=== PATIENT | female | born 2000 | race Caucasian/White ===

== ENCOUNTER 2018-12-05 16:59 | Emergency (ER) | payer BC ==
--- NOTE | 2018-12-05 18:28 | EDPHY ---
General Time Seen by Provider: 12/05/18 17:45 Narrative: CLINICAL IMPRESSION: Chronic low back pain ASSESSMENT/PLAN: 18-year-old female presents to the emergency department with intermittent low back pain for 1 year. Patient reports today the pain was sharper which brought her to the ER. Pain is reproducible to palpation along the right SI joint and paraspinal muscles of the lumbar spine right > than left, she has no reproducible flank pain, and pain is worse with forward bending and rotation of her trunk. Patient ambulates with a steady gait, has intact patellar DTRs, has no reported bowel or bladder incontinence or saddle anesthesia, no reports of urinary retention. She has no complaints of UTI symptoms and denies . No prior back injury or surgery. No significant past medical history including cancers. No reported trauma or fall. I do not feel this patient requires an emergent x-ray tonight. There are no clinical concerns to suggest cauda equina, epidural abscess, meningitis, or acute neurovascular injury. I suspect patient is struggling from an intermittent musculoskeletal strain and I encouraged her to follow up with Orthopedics, physical therapy, consider gentle massage and primary care evaluation. Urine shows no sign of hematuria or UTI. Warning signs for return to emergency department sooner were outlined and discharge. DIFFERENTIAL DX: Differential diagnosis includes but not limited to muscular pain, herniated disc , spine fracture, cauda equina, epidural abscess, infectious causes, intra- abdominal causes, pyelonephritis and urinary tract infection. ED PROCEDURES: See lab and/or imaging results below ED COURSE: 6:20 p.m.: Patient evaluated. Urine study show no sign of UTI. Pain is reproducible to the right SI joint. No history of trauma. No clinical indication for acute fracture. CHIEF COMPLAINT: Back pain intermittently x1 year HPI: 18-year-old female presents to the emergency department with atraumatic low back pain that has been present intermittently for the last year. She has never seen anyone for this. She came to the ED tonight because her pain was slightly sharper in nature. Pain is worsened by forward bending, rotation, and certain movements. She can reproduce pain by pushing on the back. No associated flank pain, fever, chills, dysuria, urgency. No saddle anesthesia. No bowel or bladder incontinence or urinary retention. No prior back injury or surgery. No recent epidural injection or procedure to the spine. She does not abuse IV drugs. No past medical history including cancer. No UTI symptoms and she denies . PAST MEDICAL HISTORY: Chronic low back pain See nurse/triage notes for additional history if applicable Pertinent Past Surgical History: None reported Family History: Noncontributory Social History: Otherwise healthy, student REVIEW OF SYSTEMS: All other systems negative Constitutional: No fever, no chills, appetite change. Cardiovascular: No chest pain, no palpitations. Respiratory: No cough, no shortness of breath. Gastrointestinal: No abdominal pain, no vomiting, diarrhea. Genitourinary: No hematuria, dysuria, flank pain, pelvic pain Musculoskeletal: Positive for back pain, joint swelling, joint pain, myalgias. Skin: No rashes, color change. PHYSICAL EXAM: General Appearance: Alert, oriented, appropriate, cooperative, NAD, well hydrated, non-toxic appearing, VSS, no hypoxia. Respiratory: There are no retractions, lungs are clear to auscultation. Cardiac: Regular rate and rhythm, no murmurs or gallops. Gastrointestinal: Abdomen is soft, nontender, bowel sounds normal, no masses/ hernia, no rigidity, guarding or focal peritoneal findings. Neurological: Alert and oriented x 3, CN 2-12 grossly intact, normal gait no ataxia, DTR's intact, normal sensation and strength Skin: Warm, dry, no rashes, no nodules on palpation. Musculoskeletal: Extremities are symmetrical, full range of motion, no tenderness, deformity, swelling, or erythema. Reproducible back pain along the right SI joint radiating to the paraspinal muscles of the right lumbar spine. No midline back pain. Negative straight leg raise. MEDICAL DECISION MAKING: Patient was seen independently. Secondary supervising physician at time of evaluation was Dr. Barrett. Diagnosis: Right SI pain, low back pain. New, requires workup Summary: See Assessment and Plan for summary of ED visit Patient Progress: Stable. - History Smoking Status: Never smoked - Objective Vital Signs: Initial Vital Signs Temperature (C) 36.9 C 12/05/18 17:07 Heart Rate 75 12/05/18 17:07 Respiratory Rate 16 12/05/18 17:07 Blood Pressure 123/64 H 12/05/18 17:07 O2 Sat (%) 97 12/05/18 17:07 O2 Delivery Mode Room Air Allergies/Adverse Reactions: clindamycin Allergy (Verified 12/05/18 17:06) ibuprofen Allergy (Verified 12/05/18 17:06) Home Medications: Medication Instructions Recorded Loestrin 21 1-20 Tablet 12/05/18 Sertraline HCl 12/05/18 Laboratory Results: 12/05/18 17:16 Urine Color YELLOW Urine Appearance HAZY Urine pH 8.0 H (5.0-7.5) Ur Specific [place] 1.017 (1.002-1.030) Urine Protein NEGATIVE (NEGATIVE) Urine Ketones NEGATIVE (NEGATIVE) Urine Blood NEGATIVE (NEGATIVE) Urine Nitrate NEGATIVE (NEGATIVE) Urine Bilirubin NEGATIVE (NEGATIVE) Urine Urobilinogen NEGATIVE EU EU (0.2-1.0) Ur Leukocyte Esterase TRACE H (NEGATIVE) Urine RBC 1-3 /hpf /hpf (0-3) Urine WBC 1-3 /hpf /hpf (0-3) Ur Epithelial Cells TRACE /lpf /lpf (NONE-1+) Urine Bacteria TRACE /hpf H /hpf (NONE SEEN) Urine Mucus TRACE /lpf /lpf (NONE-1+) Urine Glucose NEGATIVE (NEGATIVE) Departure - Departure Disposition: Home, Routine, Self-Care Clinical Impression: Low back pain Qualifiers: Chronicity: chronic Back pain laterality: right Sciatica presence: without sciatica Qualified Code(s): M54.5 - Low back pain Condition: Good Instructions: Acute Low Back Pain (ED) Additional Instructions: DISCHARGE INSTRUCTIONS FROM YOUR DOCTOR Thank you for visiting our emergency department today. Please keep in mind that discharge from the emergency department does not mean that there is nothing wrong - it simply means that we have not identified an emergency condition that requires further evaluation or treatment in the hospital. You should always plan to follow up with primary care for re-evaluation of your condition in the next 2-3 days. If you have been referred to a specialist, please call as soon as possible (today or tomorrow) to schedule your follow up appointment at the appropriate time. URINE DOES NOT SHOW SIGN OF INFECTION. YOU HAVE NO BLOOD IN URINE. BACK PAIN IS REPRODUCIBLE TO THE RIGHT SI JOINT AND IS LIKELY MUSCULOSKELETAL IN ORIGIN. GIVEN THE LACK OF TRAUMA, X-RAYS WERE NOT ORDERED TONIGHT. WE RECOMMEND FOLLOW- UP WITH ORTHOPEDICS, PRIMARY CARE, CONSIDER PHYSICAL THERAPY, GENTLE MASSAGE. GIVEN THAT YOU CANNOT TAKE NSAIDS, YOU MAY WANT TO CONSIDER [id number] LIDODERM PATCHES. RETURN TO THE EMERGENCY DEPARTMENT FOR SEVERE PAIN, URINARY RETENTION, BOWEL OR BLADDER INCONTINENCE, NUMBNESS TO HER GROIN, NUMBNESS TO HER LEGS, INABILITY TO WALK, OR ANY OTHER CONCERN. People present with illnesses and injuries in different ways, and it is always possible that we have missed something. You may always return for re-evaluation if symptoms worsen or if they are not improving or if you develop new/different symptoms. Again, thank you for choosing our emergency department. We hope that you feel better. Referrals: NONE *PRIMARY CARE P,. [Primary Care Provider] - As per Instructions Estrellita Cervantes MD [Medical Doctor] - As per Instructions [facility] [Cl[facility]] - As per Instructions
[2018-12-05 18:57] VITALS: BP 106/56
== END 2018-12-05 18:56 | disposition home or self-care (01) ==
DX: M54.5 Low back pain (principal)

== ENCOUNTER 2019-02-23 06:12 | Emergency (ER) | payer BC ==
[2019-02-23] MEDS ORDERED: ACETAMINOPHEN 325 MG TAB PO ONE (07:04)
--- NOTE | 2019-02-23 07:11 | EDPHY ---
H & P Stated Complaint: L upper thigh pain x1 wk, worsening last night, concerned for blood clot Time Seen by Provider: 02/23/19 06:55 HPI/ROS: CHIEF COMPLAINT: Left thigh pain HISTORY OF PRESENT ILLNESS: 18-year-old female presents with left thigh pain. Onset of atraumatic left thigh pain 1 week ago. The pain has gradually increased and is now moderate. The pain increases with movement and is better with rest. Unable to sleep last night because of pain. No associated symptoms. On control pills, no history of VTE. REVIEW OF SYSTEMS: complete 10 point ROS reviewed and is negative except for the noted elements in the HPI - Personal History LMP (Females 10-55): 15-21 Days Ago Current Tetanus Diphtheria and Acellular Pertussis (TDAP): Yes - Medical/Surgical History Hx Asthma: No Hx Chronic Respiratory Disease: No Hx Diabetes: No Hx Cardiac Disease: No Hx Renal Disease: No Hx Cirrhosis: No Hx Alcoholism: No Hx HIV/AIDS: No Hx Splenectomy or Spleen Trauma: No Other PMH: wisdom teeth - Social History Smoking Status: Never smoked - Physical Exam Exam: General Appearance: Alert, pleasant Eyes: Pupils equal and round, no conjunctival pallor ENT, Mouth: Mucous membranes moist Neck: Normal inspection Respiratory: Lungs are clear to auscultation Cardiovascular: Regular rate and rhythm Gastrointestinal: Abdomen is soft and nontender Neurological: A&O, motor 5/5 of the lower extremities, sensory grossly intact Skin: Warm and dry, no erythema or rash Extremities: Normal inspection, Left anterior thigh tenderness, no swelling, no calf tenderness or swelling Vascular: 2+ pedal pulses Psychiatric: Mood and affect normal Constitutional: Initial Vital Signs Temperature (C) 36.8 C 02/23/19 06:13 Heart Rate 90 02/23/19 06:13 Respiratory Rate 17 02/23/19 06:13 Blood Pressure 126/80 H 02/23/19 06:13 O2 Sat (%) 97 02/23/19 06:13 O2 Delivery Mode Room Air Allergies/Adverse Reactions: clindamycin Allergy (Verified 02/23/19 06:13) ibuprofen Allergy (Verified 02/23/19 06:13) Home Medications: Medication Instructions Recorded Loestrin 21 1-20 Tablet 12/05/18 Sertraline HCl 12/05/18 Medical Decision Making - Diagnostics Imaging Results: Imaging Impressions Extremity Venous Study 02/23/19 06:56 Impression: No evidence of deep vein thrombosis. Findings discussed with AMITA SANTAMARIA 02/23/2019 at 7:53. Femur X-Ray 02/23/19 07:05 Impression: 1. Subtle endosteal scalloping mid femoral diaphyseal shaft may indicate intramedullary lesion as source for pain. Recommend MRI of the thigh with and without IV contrast to optimally evaluate. 2. No fracture. Comment: The case was discussed with Dr. Amita Santamaria shortly after study completion on February 23, 2019. I have reviewed the case with Dr. Rubio Rojas who agrees with the findings and recommendations. Imaging: Discussed imaging studies w/ scallop cutter Radiologist, I viewed and interpreted images myself ED Course/Re-evaluation: This patient presents with atraumatic left thigh pain. Left lower extremity ultrasound read by the radiologist reveals no evidence of DVT. X-ray initially read by me as negative. After the patient left the emergency department, I received a follow-up phone call from Dr. Liao. There is a possible subtle lucency along the mid femur. Dr. Liao suggests an MRI with and without contrast to further evaluate this finding. I agree with this, as this is the area of her pain. I called the patient and left a phone message for her at 9: 30 a.m. and at noon. ED charge nurse informed, Arnoldo called pt's parents. Differential Diagnosis: Differential diagnosis includes though it is not limited to fracture, dislocation, tendon disruption, neurovascular compromise. - Data Points Medications Given: Discontinued Medications Acetaminophen (Tylenol) 650 mg PO EDNOW ONE Stop: 02/23/19 07:05 Last Admin: 02/23/19 07:18 Dose: 325 mg Departure - Departure Disposition: Home, Routine, Self-Care Clinical Impression: Leg pain, left Condition: Good Instructions: Leg Pain (ED) Additional Instructions: Your left leg ultrasound and left femur Xrays are normal. You do not have a blood clot. Tylenol 650 mg every 4 hr as needed for pain. Ice for 20 min every 1-2 hours as needed for pain. Referrals: [facility],. [Clinic] - As per Instructions Yan Magallanes MD [Medical Doctor] - 5-7 days, if not improved Stand Alone Forms: Statement of Treatment
[2019-02-23 08:13] VITALS: BP 102/67
[2019-02-23] MEDS ORDERED: GADOBUTROL 10 ML VIAL IVP ONE (14:01)
== END 2019-02-23 08:13 | disposition home or self-care (01) ==
DX: M79.652 Pain in left thigh (principal)
CPT/HCPCS: A9585

== ENCOUNTER 2019-02-23 12:43 | Emergency (ER) | payer BC ==
[2019-02-23 12:59] VITALS: BP 118/91
[2019-02-23 13:44] LABS: PLATELET COUNT 292 10^3/uL (150-400)
--- NOTE | 2019-02-23 15:00 | EDPHY ---
H & P Stated Complaint: L Thigh Pain - Personal History LMP (Females 10-55): Over 28 Days Ago Current Tetanus Diphtheria and Acellular Pertussis (TDAP): Yes - Medical/Surgical History Hx Asthma: No Hx Chronic Respiratory Disease: No Hx Diabetes: No Hx Cardiac Disease: No Hx Renal Disease: No Hx Cirrhosis: No Hx Alcoholism: No Hx HIV/AIDS: No Hx Splenectomy or Spleen Trauma: No Other PMH: wisdom teeth - Social History Smoking Status: Never smoked Alcohol Use: Sober Drug Use: None Time Seen by Provider: 02/23/19 12:59 HPI/ROS: CHIEF COMPLAINT: Left thigh pain HISTORY OF PRESENT ILLNESS: 18-year-old female presents with left thigh pain and abnormal fever x-ray. She was seen by me this morning for one-week history of moderate left thigh pain. Left lower extremity ultrasound was negative. X- ray of the femur reported by the radiologist reveals a subtle cortical lucency along the midshaft of the femur. She returns for MRI of the thigh. REVIEW OF SYSTEMS: complete 10 point ROS reviewed and is negative except for the noted elements in the HPI (Amita Santamaria) - Physical Exam Exam: General Appearance: Alert, pleasant Eyes: Pupils equal and round, no conjunctival pallor ENT, Mouth: Mucous membranes moist Neck: Normal inspection Respiratory: Lungs are clear to auscultation Cardiovascular: Regular rate and rhythm Gastrointestinal: Abdomen is soft and nontender Neurological: A&O, nonfocal, normal gait Skin: Warm and dry, no erythema Extremities: Anterior left thigh tenderness, no swelling Psychiatric: Mood and affect normal (Amita Santamaria S) Constitutional: Initial Vital Signs Temperature (C) 36.8 C 02/23/19 12:57 Heart Rate 88 02/23/19 12:57 Respiratory Rate 16 02/23/19 12:57 Blood Pressure 118/91 H 02/23/19 12:57 O2 Sat (%) 97 02/23/19 12:57 O2 Delivery Mode Room Air Allergies/Adverse Reactions: clindamycin Allergy (Verified 02/23/19 12:57) ibuprofen Allergy (Verified 02/23/19 12:57) Home Medications: Medication Instructions Recorded Loestrin 21 1-20 Tablet 12/05/18 Sertraline HCl 12/05/18 ALPRAZolam [Xanax 0.5 MG (*)] 0.5 mg PO TID PRN #10 tab 02/23/19 Medical Decision Making ED Course/Re-evaluation: MRI of the femur ordered. 1500: signed over to Dr. Gastelum at shift change. (Amita Santamaria) Other Provider: This patient was signed out to me at 3:[address] Santamaria pending results of MRI. 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 I introduced myself to the patient and family and gave them this unfortunate news. The patient became understandably quite upset and somewhat hysterical at this news. I attempted to provide as much emotional support is possible and agreed to help the family establish close follow-up with an orthopedic senior specialist in [place] as soon as possible. I was are able to range an appointment on Thursday and family seems pleased. There is no sign of fracture on MRI so I do not think the patient is to be nonweightbearing but I have cautioned her to be as gentle on that leg as possible and to try and restrict activity until form of valuation by orthopedist on Thursday. Family is comfortable this plan. (Sunil Gastelum) - Data Points Laboratory Results: Laboratory Results 02/23/19 13:30 02/23/19 13:30 Point of Care Test Results: Chemistry 02/23/19 13:37 POC Sodium 141 mEq/L mEq/L (135-145) POC Potassium 3.8 mEq/L mEq/L (3.3-5.0) POC Chloride 105 mEq/L mEq/L (97-110) POC Total CO2 21 mEq/L L mEq/L (22-31) POC BUN 8 mg/dL mg/dL (7-23) POC Creatinine 0.8 mg/dL mg/dL (0.6-1.0) POC Glucose 78 mg/dL mg/dL (70-100) ISTAT H&H 02/23/19 13:37 POC Hgb 15.6 gm/dL gm/dL (12.6-16.3) POC Hct 46 % % (38-47) Departure - Departure Disposition: Home, Routine, Self-Care Clinical Impression: femur tumor Condition: Good Instructions: Leg Pain (ED) Additional Instructions: We have made an appointment for you at [facility] ([place], [place]) Orthopedics on Thursday at 9:30am. They have requested you bring a copy of your MRI. This was their first available appointment. If you need to change appointment, call their office [facility]. [address] [place] [id number]. [facility]. . Return to the ED for fever, severe pain, numbness. It is ok to gently walk on affected leg but refrain from any significant activity until you have been seen by your intensive care medicine specialist. Referrals: Yan Magallanes MD [Medical Doctor] - As per Instructions (Call to make an appointment with Dr. Magallanes.) Stand Alone Forms: School Excuse Prescriptions: ALPRAZolam [Xanax 0.5 MG (*)] 0.5 mg PO TID PRN #10 tab PRN Reason: Anxiety
== END 2019-02-23 16:36 | disposition home or self-care (01) ==
DX: D16.22 Benign neoplasm of long bones of left lower limb (principal)
CPT/HCPCS: 82435-PO; 82565-PO; 82947-PO; 84132-PO; 84295-PO; 84520-PO; 85014-ER